=== PATIENT | male | born 2000 | race Asian ===

== ENCOUNTER 2024-12-03 23:06 | Emergency (ER) | payer OTHER ==
[~2024-12-03] VITALS: Ht 170.2 cm; Wt 67.0 kg
[2024-12-03 23:09] VITALS: TEMP 98.2; O2SAT 96
[2024-12-03] MEDS ORDERED: P20 MT (23:53)
[2024-12-03] MEDS ORDERED: DIPH25CA83 MT (23:53)
[2024-12-03] MEDS ORDERED: EPIN0.3P3 IM (23:53)
[2024-12-04] MEDS: FAMOTIDINE 20MG/2ML VIAL IV ONE (01:36)
[2024-12-04] MEDS: METHYLPREDNISOLONE SOD SUCC 125MG/2ML (ACT-O-VIAL) IV ONE (01:36)
[2024-12-04 03:48] VITALS: BP 103/64; PULSE 99; RESP 20
== END 2024-12-04 04:16 | disposition home or self-care (01) ==
LOC: ER 23:06
DX: T78.40XA Allergy, unspecified, initial encounter (principal); X58.XXXA Exposure to other specified factors, initial encounter
CPT/HCPCS: 99284; 96374; 96375; J3490; J2919